=== PATIENT | female | born 1990 | race Hispanic/Latino ===

== ENCOUNTER 2020-06-24 03:12 | Emergency (ER) | payer SELFPAY ==
[2020-06-24 03:54] VITALS: BP 141/89
[2020-06-24] MEDS ORDERED: IBUPROFEN 800 MG TAB PO ONE (04:17)
[2020-06-24] MEDS ORDERED: oxyCODONE /ACETAMINOPHEN 5-325MG TAB PO ONE (05:34)
[2020-06-24] MEDS ORDERED: ONDANSETRON 4 MG ODT TAB PO ONE (05:34)
--- NOTE | 2020-06-24 05:34 | Emergency Department Report ---
ED General Adult HPI - General Chief complaint: Dental/Oral Stated complaint: TOOTHACHE Time Seen by Provider: 06/24/20 04:52 Source: patient Mode of arrival: Ambulatory Limitations: No Limitations - History of Present Illness Initial comments: 29-year-old female patient presents with complaints of bilateral lower dental pain x3 days with facial swelling. She rates her pain as a 10/10 in severity and denies any fever/chills/sweats, difficulty opening her jaw, or dysphagia. She denies currently following with a dental specialist. She rep orts history of dental caries Severity scale (0 -10): 10 - Related Data Previous Rx's Medication Instructions Recorded Last Taken Type Acetaminophen/Codeine [Tylenol 1 tab PO Q8H PRN #12 tab 06/24/20 Unknown Rx /Codeine # 3 tab] Clindamycin [Clindamycin CAP] 300 mg PO Q6H 10 Days #40 capsule 06/24/20 Unknown Rx Ibuprofen [Motrin 800 MG tab] 800 mg PO Q8HR PRN #21 tablet 06/24/20 Unknown Rx Ondansetron [Zofran Odt] 4 mg PO Q8HR PRN #15 tab.rapdis 06/24/20 Unknown Rx Allergies Allergy/AdvReac Type Severity Reaction Status Date / Time No Known Allergies Allergy Verified 06/24/20 05:06 ED Review of Systems ROS: Stated complaint: TOOTHACHE Other details as noted in HPI Constitutional: denies: chills, fever ENT: dental pain. denies: throat pain Respiratory: denies: cough, shortness of breath Skin: denies: change in color Hematological/Lymphatic: denies: swollen glands ED Past Medical Hx - Past Medical History Previous Medical History?: No - Surgical History Past Surgical History?: Yes Additional Surgical History: ileostomy - Social History Smoking Status: Current Every Day Smoker Substance Use Type: None - Medications Home Medications: Home Medications Medication Instructions Recorded Confirmed Last Taken Type Acetaminophen/Codeine [Tylenol 1 tab PO Q8H PRN #12 tab 06/24/20 Unknown Rx /Codeine # 3 tab] Clindamycin [Clindamycin CAP] 300 mg PO Q6H 10 Days #40 capsule 06/24/20 Unknown Rx Ibuprofen [Motrin 800 MG tab] 800 mg PO Q8HR PRN #21 tablet 06/24/20 Unknown Rx Ondansetron [Zofran Odt] 4 mg PO Q8HR PRN #15 tab.rapdis 06/24/20 Unknown Rx ED Physical Exam - General Limitations: No Limitations General appearance: alert, in no apparent distress - Head Head exam: Present: atraumatic, normocephalic - Eye Eye exam: Present: normal appearance. Absent: scleral icterus - ENT ENT exam: Present: mucous membranes moist - Expanded ENT Exam Expanded Mouth exam: Absent: drooling, trismus, muffled voice Teeth exam: Present: dental caries 1 - Dental Tenderness (Erythema, dental caries, and mild overlying facial swelling noted without cellulitic changes) 2 - Dental Tenderness Throat exam: Positive: normal inspection - Neck Neck exam: Present: normal inspection - Respiratory Respiratory exam: Absent: respiratory distress - Cardiovascular Cardiovascular Exam: Present: regular rate - Back Exam Back exam: Present: full ROM - Neurological Exam Neurological exam: Present: alert, oriented X3 - Psychiatric Psychiatric exam: Present: normal affect, normal mood - Skin Skin exam: Present: warm, dry, intact, normal color. Absent: rash ED Course Vital Signs 06/24/20 03:52 Temperature 98.4 F Pulse Rate 78 Respiratory 20 Rate Blood Pressure 141/89 O2 Sat by Pulse 98 Oximetry ED Medical Decision Making - Medical Decision Making 29-year-old female patient presents with complaints of bilateral lower dental pain x3 days with facial swelling. She rates her pain as a 10/10 in severity and denies any fever/chills/sweats, difficulty opening her jaw, or dysphagia. She denies currently following with a dental specialist. She reports history of dental caries Will treat for dental abscess with clindamycin. Patient provided with dental specialist list and informed to follow-up in 2 days. Her vitals are normal, she is well-appearing, she is stable for discharge home. Discussed signs and symptoms that should prompt immediate return to the emergency department in detail with patient who verbalizes understanding. Critical care attestation.: If time is entered above; I have spent that time in minutes in the direct care of this critically ill patient, excluding procedure time. ED Disposition Clinical Impression: Dental abscess Disposition: DC TO HOME OR SELFCARE Is pt being admited?: No Condition: Stable Instructions: Dental Abscess Additional Instructions: Follow-up with a dental specialist from the list provided within 2 days. Prescriptions: Clindamycin [Clindamycin CAP] 300 mg PO Q6H 10 Days #40 capsule Ibuprofen [Motrin 800 MG tab] 800 mg PO Q8HR PRN #21 tablet PRN Reason: Pain, Moderate (4-6) Acetaminophen/Codeine [Tylenol /Codeine # 3 tab] 1 tab PO Q8H PRN #12 tab PRN Reason: Pain , Severe (7-10) Ondansetron [Zofran Odt] 4 mg PO Q8HR PRN #15 tab.rapdis PRN Reason: Nausea
== END 2020-06-24 06:40 | disposition home or self-care (01) ==
LOC: ED 03:12
DX: K04.7 Periapical abscess without sinus (principal); F17.200 Nicotine dependence, unspecified, uncomplicated; Z79.899 Other long term (current) drug therapy
CPT/HCPCS: 99282; Q0162

== ENCOUNTER 2020-06-29 07:36 | Emergency (ER) | payer SELFPAY ==
[2020-06-29 07:44] VITALS: BP 117/65
--- NOTE | 2020-06-29 07:53 | Emergency Department Report ---
ED General Adult HPI - General Chief complaint: Medical Clearance Stated complaint: ILEOSTOMY BAG BUST/BURNING/ICHY/PAIN Time Seen by Provider: 06/29/20 07:40 Source: patient Mode of arrival: Ambulatory Limitations: No Limitations - History of Present Illness Initial comments: This is a 30-year-old female nontoxic, well nourished in appearance, no acute signs of distress presents to the ED ostomy bag change. Patient stated that she is out of town and there is a delay with her treatment package. Patient stated has some leakage from the ostomy bag. Patient otherwise denies any complaints. Patient denies any cellulitis. Denies any redness or itching. Denies any skin breakdown. Patient denies chest pain, short of breath, fever, hemoptysis, blood in stool, chills, headache, stiff neck, numbness or tingling. Patient denies any diarrhea or constipation. Denies any blood in stool. Patient denies any recent travels. Patient denies any allergies. MD Complaint: Ostomy change -: days(s) Severity scale (0 -10): 0 Improves with: none Worsens with: none Associated Symptoms: denies other symptoms. denies: confusion, chest pain, cough, diaphoresis, fever/chills, headaches, loss of appetite, malaise, nausea/vomiting, rash, seizure, shortness of breath, syncope, weakness Treatments Prior to Arrival: none - Related Data Previous Rx's Medication Instructions Recorded Last Taken Type Acetaminophen/Codeine [Tylenol 1 tab PO Q8H PRN #12 tab 06/24/20 Unknown Rx /Codeine # 3 tab] Clindamycin [Clindamycin CAP] 300 mg PO Q6H 10 Days #40 capsule 06/24/20 Unknown Rx Ibuprofen [Motrin 800 MG tab] 800 mg PO Q8HR PRN #21 tablet 06/24/20 Unknown Rx Ondansetron [Zofran Odt] 4 mg PO Q8HR PRN #15 tab.rapdis 06/24/20 Unknown Rx Allergies Allergy/AdvReac Type Severity Reaction Status Date / Time No Known Allergies Allergy Verified 06/24/20 05:06 ED Review of Systems ROS: Stated complaint: ILEOSTOMY BAG BUST/BURNING/ICHY/PAIN Other details as noted in HPI Comment: All other systems reviewed and negative Constitutional: denies: chills, fever Eyes: denies: eye pain, eye discharge, vision change ENT: denies: ear pain, throat pain Respiratory: denies: cough, shortness of breath, wheezing Cardiovascular: denies: chest pain, palpitations Endocrine: no symptoms reported Gastrointestinal: denies: abdominal pain, nausea, diarrhea Genitourinary: denies: urgency, dysuria, discharge Musculoskeletal: denies: back pain, joint swelling, arthralgia Skin: denies: rash, lesions Neurological: denies: headache, weakness, paresthesias Psychiatric: denies: anxiety, depression Hematological/Lymphatic: denies: easy bleeding, easy bruising ED Past Medical Hx - Past Medical History Previous Medical History?: No - Surgical History Additional Surgical History: ileostomy - Social History Smoking Status: Current Every Day Smoker Substance Use Type: None - Medications Home Medications: Home Medications Medication Instructions Recorded Confirmed Last Taken Type Acetaminophen/Codeine [Tylenol 1 tab PO Q8H PRN #12 tab 06/24/20 Unknown Rx /Codeine # 3 tab] Clindamycin [Clindamycin CAP] 300 mg PO Q6H 10 Days #40 capsule 06/24/20 Unknown Rx Ibuprofen [Motrin 800 MG tab] 800 mg PO Q8HR PRN #21 tablet 06/24/20 Unknown Rx Ondansetron [Zofran Odt] 4 mg PO Q8HR PRN #15 tab.rapdis 06/24/20 Unknown Rx ED Physical Exam - General Limitations: No Limitations General appearance: alert, in no apparent distress - Head Head exam: Present: atraumatic, normocephalic - Eye Eye exam: Present: normal appearance - Neck Neck exam: Present: full ROM - Respiratory Respiratory exam: Absent: respiratory distress - Cardiovascular Cardiovascular Exam: Present: regular rate - GI/Abdominal GI/Abdominal exam: Present: soft, normal bowel sounds, other (No cellulitis or swelling to the ostomy site.). Absent: distended, tenderness, guarding, rebound, rigid, diminished bowel sounds - Extremities Exam Extremities exam: Present: full ROM - Back Exam Back exam: Present: full ROM - Neurological Exam Neurological exam: Present: alert, oriented X3, normal gait - Psychiatric Psychiatric exam: Present: normal affect, normal mood - Skin Skin exam: Present: warm, dry, intact, normal color. Absent: rash ED Course Vital Signs 06/29/20 07:39 Temperature 98 F Pulse Rate 90 Respiratory 20 Rate Blood Pressure 117/65 O2 Sat by Pulse 96 Oximetry - Reevaluation(s) Reevaluation #1: 06/29/20 07:51 Patient is speaking in full sentences with no signs of distress noted. ED Medical Decision Making - Medical Decision Making Patient is stable and was examined by me. Vital signs are stable. Patient received a ostomy bag in the ER. Patient stated she will change herself as she is familiar of how to change it. Exam is unremarkable. Patient was instructed to follow-up with a primary care doctor in 3-5 days or if symptoms worsen and continue return to emergency room as soon as possible. At time of discharge, the patient does not seem toxic or ill in appearance. No acute signs of dis tress noted. Patient agrees to discharge treatment plan of care. No further questions noted by the patient. Critical care attestation.: If time is entered above; I have spent that time in minutes in the direct care of this critically ill patient, excluding procedure time. ED Disposition Clinical Impression: Ileostomy bag changed Disposition: DC-01 TO HOME OR SELFCARE Is pt being admited?: No Does the pt Need Aspirin: No Condition: Stable Instructions: Ileostomy Reversal, Care After Additional Instructions: Follow-up with a primary care doctor in 3-5 days or if symptoms worsen and continue return to emergency room as soon as possible. Referrals: PRIMARY CARE, [Referring] - 3-5 Days MARYAM JACKSON MD [Staff Physician] - 3-5 Days Time of Disposition: 07:52
== END 2020-06-29 07:59 | disposition home or self-care (01) ==
LOC: ED 07:36
DX: Z43.2 Encounter for attention to ileostomy (principal); F17.200 Nicotine dependence, unspecified, uncomplicated; Z79.899 Other long term (current) drug therapy; Z98.890 Other specified postprocedural states
CPT/HCPCS: 99281

== ENCOUNTER 2020-07-06 12:12 | Emergency (ER) | payer SELFPAY ==
--- NOTE | 2020-07-06 12:26 | Emergency Department Report ---
Blank Doc - Documentation Documentation: 21-year-old female that presents with abdominal pain with nausea vomiting. 1- This initial assessment/diagnostic orders/clinical plan/ treatment(s) is/are subject to change based on pt's health status, clinical progression and re- assessment by fellow clinical providers in the ED. Further treatment and workup at subsequent clinical provers discretion. Patient/guardians urged not to elope from ED as their condition may be serious if not clinically assessed and managed. 2-labs 3-UA
[2020-07-06 12:54] LABS: Basophils % (Auto) 0.2 % (0.0-1.8); Hemoglobin 15.3 gm/dl (10.1-14.3); Lymphocytes # (Auto) 1.5 K/mm3 (1.2-5.4); Lymphocytes % (Auto) 13.5 % (13.4-35.0); Mean Corpuscular HGB Conc 36 % (30-34); Mean Corpuscular Volume 85 fl (79-97); Monocytes # (Auto) 0.2 K/mm3 (0.0-0.8); Monocytes % (Auto) 2.1 % (0.0-7.3); Platelet Count 331 K/mm3 (140-440); Red Blood Count 5.03 M/mm3 (3.65-5.03); Red Cell Distribution Width 14.5 % (13.2-15.2)
[2020-07-06 13:10] LABS: Bilirubin,Urine NEG (Negative); Blood,Urine MOD (Negative); Color,Urine Yellow (Yellow); Mucus,Urine 2+ /HPF; Urobilinogen,Urine < 2.0 mg/dL (<2.0)
[2020-07-06 13:20] LABS: Alanine Aminotransferase 22 units/L (7-56); Albumin 4.9 g/dL (3.9-5); Blood Urea Nitrogen 13 mg/dL (7-17); Calcium 9.7 mg/dL (8.4-10.2); Hemolysis Index 5
[2020-07-06 13:34] LABS: BUN/Creatinine Ratio 19
[2020-07-06] MEDS ORDERED: ONDANSETRON 4 MG/2 ML INJ IV ONE (13:42)
[2020-07-06] MEDS ORDERED: SODIUM CHLORIDE 0.9% 1000 ML 1,000 ML IV ONE (13:42)
--- NOTE | 2020-07-06 14:23 | XRay Report ---
ABDOMEN 1 VIEW(S) INDICATION / CLINICAL INFORMATION: vomiting; colostomy present. COMPARISON: None available. FINDINGS: TUBES / LINES: None. BOWEL GAS PATTERN: No significant abnormality. FREE AIR / EXTRALUMINAL GAS: None seen. ADDITIONAL FINDINGS: No acute findings on the included chest radiograph. Right lower quadrant ostomy is noted. IMPRESSION: 1. No radiographic evidence of acute abdomen. Signer Name: Ajith Somers MD Signed: 07/06/2020 2:19 PM Workstation Name: [id number]
--- NOTE | 2020-07-06 14:28 | Emergency Department Report ---
ED N/V/D HPI - General Chief complaint: Nausea/Vomiting/Diarrhea Stated complaint: VOMITING/LIGHTHEADED Time Seen by Provider: 07/06/20 12:24 Source: patient, EMS Mode of arrival: Ambulatory Limitations: No Limitations - History of Present Illness Initial comments: 29-year-old female presents to ED with nausea, vomiting, diarrhea since this morning. 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 Patient reports onset of vomiting and diarrhea earlier this morning. Patient denies any abdominal pain. Patient has colostomy bag, reports history of Crohn's-like illness, but states it was d etermined that she does not actually have Crohn's disease. Patient reports she has been having increased stool in her ostomy bag. Patient denies any known sick contacts. She denies any fever, cough, shortness of breath. She denies any contact with anyone who is tested positive for COVID-19. MD complaint: nausea, vomiting -: This morning Description of Vomiting: food contents Associated Abdominal Pain: No Severity: moderate Consistency: constant Improves with: none Worsens with: eating Associated Symptoms: nausea/vomiting, weakness. denies: cough, diaphoresis, shortness of breath - Related Data Previous Rx's Medication Instructions Recorded Last Taken Type Acetaminophen/Codeine [Tylenol 1 tab PO Q8H PRN #12 tab 06/24/20 Unknown Rx /Codeine # 3 tab] Clindamycin [Clindamycin CAP] 300 mg PO Q6H 10 Days #40 capsule 06/24/20 Unknown Rx Ibuprofen [Motrin 800 MG tab] 800 mg PO Q8HR PRN #21 tablet 06/24/20 Unknown Rx Ondansetron [Zofran Odt] 4 mg PO Q8HR PRN #15 tab.rapdis 06/24/20 Unknown Rx Dicyclomine [Bentyl] 20 mg PO QID PRN #20 tablet 07/06/20 Unknown Rx Ondansetron [Zofran Odt] 4 mg PO Q8HR PRN #20 tab.rapdis 07/06/20 Unknown Rx Allergies Allergy/AdvReac Type Severity Reaction Status Date / Time No Known Allergies Allergy Verified 06/24/20 05:06 ED Review of Systems ROS: Stated complaint: VOMITING/LIGHTHEADED Other details as noted in HPI Comment: All other systems reviewed and negative Constitutional: denies: chills, fever Gastrointestinal: nausea, vomiting, diarrhea. denies: abdominal pain ED Past Medical Hx - Past Medical History Previous Medical History?: Yes Hx Psychiatric Treatment: Yes (Methamphetamine drug use) - Surgical History Past Surgical History?: Yes Additional Surgical History: ileostomy - Social History Smoking Status: Current Every Day Smoker Substance Use Type: Alcohol, Marijuana, Tranquilizers - Medications Home Medications: Home Medications Medication Instructions Recorded Confirmed Last Taken Type Acetaminophen/Codeine [Tylenol 1 tab PO Q8H PRN #12 tab 06/24/20 Unknown Rx /Codeine # 3 tab] Clindamycin [Clindamycin CAP] 300 mg PO Q6H 10 Days #40 capsule 06/24/20 Unknown Rx Ibuprofen [Motrin 800 MG tab] 800 mg PO Q8HR PRN #21 tablet 06/24/20 Unknown Rx Ondansetron [Zofran Odt] 4 mg PO Q8HR PRN #15 tab.rapdis 06/24/20 Unknown Rx Dicyclomine [Bentyl] 20 mg PO QID PRN #20 tablet 07/06/20 Unknown Rx Ondansetron [Zofran Odt] 4 mg PO Q8HR PRN #20 tab.rapdis 07/06/20 Unknown Rx ED Physical Exam - General Limitations: No Limitations General appearance: alert, in no apparent distress - Head Head exam: Present: atraumatic, normocephalic - Eye Eye exam: Present: normal appearance, EOMI - ENT ENT exam: Present: mucous membranes moist - Neck Neck exam: Present: normal inspection - Respiratory Respiratory exam: Present: normal lung sounds bilaterally. Absent: respiratory distress - Cardiovascular Cardiovascular Exam: Present: regular rate, normal rhythm - GI/Abdominal GI/Abdominal exam: Present: soft, other (Colostomy present in the right lower quadrant). Absent: distended, tenderness - Extremities Exam Extremities exam: Present: normal inspection - Neurological Exam Neurological exam: Present: alert, oriented X3 - Psychiatric Psychiatric exam: Present: normal affect, normal mood - Skin Skin exam: Present: warm, dry, intact, normal color ED Course Vital Signs 07/06/20 07/06/20 07/06/20 12:26 13:45 15:48 Temperature 98.4 F 99.4 F Pulse Rate 105 H 95 H 104 H Respiratory 24 25 H 16 Rate Blood Pressure 105/73 Blood Pressure 99/68 108/68 [Left] O2 Sat by Pulse 99 99 99 Oximetry ED Medical Decision Making - Lab Data Result diagrams: 07/06/20 12:28 07/06/20 12:28 - Radiology Data Radiology results: report reviewed, image reviewed - Medical Decision Making 29-year-old female presents to ED with nausea vomiting. Labs unremarkable. Vital signs are stable. Patient given 1 L bolus of IV fluids and Zofran here in the ED. Acute abdominal series appears normal. Possible viral etiology to patient's symptoms. Patient feels much better at this time. Will discharge home, return precautions given. - Differential Diagnosis Bowel obstruction, viral illness, pancreatitis Critical care attestation.: If time is entered above; I have spent that time in minutes in the direct care of this critically ill patient, excluding procedure time. ED Disposition Clinical Impression: Acute gastroenteritis Disposition: DC-01 TO HOME OR SELFCARE Is pt being admited?: No Condition: Stable Instructions: Viral Gastroenteritis, Adult Prescriptions: Dicyclomine [Bentyl] 20 mg PO QID PRN #20 tablet PRN Reason: abdominal pain Ondansetron [Zofran Odt] 4 mg PO Q8HR PRN #20 tab.rapdis PRN Reason: Vomiting Referrals: KRYSTEN BERGMAN [Other] - 3-5 Days [facility] [Provider Group] - 3-5 Days Time of Disposition: 15:22
[2020-07-06 15:48] VITALS: BP 108/68
== END 2020-07-06 15:56 | disposition home or self-care (01) ==
LOC: ED 12:12
DX: K52.9 Noninfective gastroenteritis and colitis, unspecified (principal); F17.200 Nicotine dependence, unspecified, uncomplicated; F15.90 Other stimulant use, unspecified, uncomplicated; Z79.899 Other long term (current) drug therapy
CPT/HCPCS: 36415; 74022; 80053; 81001; 83690; 84703; 85025; 96361; 96374; 99284; J2405; J7030

== ENCOUNTER 2020-07-11 16:30 | Emergency (ER) | payer SELFPAY ==
[2020-07-11 17:07] VITALS: BP 100/70
--- NOTE | 2020-07-11 18:00 | Emergency Department Report ---
ED General Adult HPI - General Chief complaint: Tube Replacement Stated complaint: OSTOMY BAG BUST/BURNING/ITCHING PUI?: No Time Seen by Provider: 07/11/20 17:49 Source: patient Mode of arrival: Ambulatory Limitations: No Limitations - History of Present Illness Initial comments: This is a 29-year-old female who presents to the ED requesting ileostomy bag replacement due to her current ileostomy bag malfunction and her replacement is not here yet. Patient states that replacement bags were shipped by her mother and has not been able to get to her. Patient is here stating that she had some irritation from the site. Patient states that this is due to the tape around ostomy bag causing her to fall out. She denies fevers/chills/nausea vomiting. - Related Data Previous Rx's Medication Instructions Recorded Last Taken Type Acetaminophen/Codeine [Tylenol 1 tab PO Q8H PRN #12 tab 06/24/20 Unknown Rx /Codeine # 3 tab] Clindamycin [Clindamycin CAP] 300 mg PO Q6H 10 Days #40 capsule 06/24/20 Unknown Rx Ibuprofen [Motrin 800 MG tab] 800 mg PO Q8HR PRN #21 tablet 06/24/20 Unknown Rx Ondansetron [Zofran Odt] 4 mg PO Q8HR PRN #15 tab.rapdis 06/24/20 Unknown Rx Dicyclomine [Bentyl] 20 mg PO QID PRN #20 tablet 07/06/20 Unknown Rx Ondansetron [Zofran Odt] 4 mg PO Q8HR PRN #20 tab.rapdis 07/06/20 Unknown Rx Allergies Allergy/AdvReac Type Severity Reaction Status Date / Time No Known Allergies Allergy Verified 06/24/20 05:06 ED Review of Systems ROS: Stated complaint: OSTOMY BAG BUST/BURNING/ITCHING Other details as noted in HPI Comment: All other systems reviewed and negative ED Past Medical Hx - Past Medical History Previous Medical History?: Yes Hx Psychiatric Treatment: Yes (Methamphetamine drug use) - Surgical History Past Surgical History?: Yes Additional Surgical History: ileostomy - Social History Smoking Status: Never Smoker Substance Use Type: None - Medications Home Medications: Home Medications Medication Instructions Recorded Confirmed Last Taken Type Acetaminophen/Codeine [Tylenol 1 tab PO Q8H PRN #12 tab 06/24/20 Unknown Rx /Codeine # 3 tab] Clindamycin [Clindamycin CAP] 300 mg PO Q6H 10 Days #40 capsule 06/24/20 Unknown Rx Ibuprofen [Motrin 800 MG tab] 800 mg PO Q8HR PRN #21 tablet 06/24/20 Unknown Rx Ondansetron [Zofran Odt] 4 mg PO Q8HR PRN #15 tab.rapdis 06/24/20 Unknown Rx Dicyclomine [Bentyl] 20 mg PO QID PRN #20 tablet 07/06/20 Unknown Rx Ondansetron [Zofran Odt] 4 mg PO Q8HR PRN #20 tab.rapdis 07/06/20 Unknown Rx ED Physical Exam - General Limitations: No Limitations - Respiratory Respiratory exam: Present: normal lung sounds bilaterally - Cardiovascular Cardiovascular Exam: Present: regular rate - GI/Abdominal GI/Abdominal exam: Present: soft, other (ostomy bag visualized at right lower quadrant). Absent: distended, tenderness, rebound, mass - Extremities Exam Extremities exam: Present: normal inspection - Back Exam Back exam: Present: normal inspection - Neurological Exam Neurological exam: Present: alert, CN II-XII intact, normal gait - Skin Skin exam: Present: warm, dry, intact ED Course Vital Signs 07/11/20 17:05 Temperature 98.7 F Pulse Rate 99 H Respiratory 18 Rate Blood Pressure 100/70 O2 Sat by Pulse 99 Oximetry ED Medical Decision Making - Medical Decision Making 21-year-old female presented to ED for ileostomy bag replacement. Ostomy bag was replaced without any problems. Patient tolerated the placement. Patient was sent home with 1 extra ostomy bag so she may replace it at home. Vital signs are normal she is in no acute distress. Critical care attestation.: If time is entered above; I have spent that time in minutes in the direct care of this critically ill patient, excluding procedure time. ED Disposition Clinical Impression: Ileostomy bag changed Disposition: DC-01 TO HOME OR SELFCARE Is pt being admited?: No Does the pt Need Aspirin: No Condition: Stable Additional Instructions: Make sure to follow up with the primary care physician as discussed. If you have any worsening symptoms or develop new symptoms please return to ED immediately. Referrals: [facility] [Outside] - 3-5 Days [facility] [Outside] - 3-5 Days Forms: Work/School Release Form(ED) Time of Disposition: 18:11
== END 2020-07-11 18:34 | disposition home or self-care (01) ==
LOC: ED 16:30
DX: L29.9 Pruritus, unspecified (principal); F15.10 Other stimulant abuse, uncomplicated; Z79.899 Other long term (current) drug therapy; Z44.8 Encounter for fitting and adjustment of other external prosthetic devices
CPT/HCPCS: 99282